=== PATIENT | female | born 1970 | race Caucasian/White ===

== ENCOUNTER 2021-07-01 15:33 | Emergency (ER) | payer OTHER ==
[2021-07-01] MEDS ORDERED: DECADRON 10MG INJ. IV ONE (16:31)
[2021-07-01] MEDS ORDERED: DECADRON 10MG INJ. ONE (16:34)
--- NOTE | 2021-07-01 17:09 | XRAY ---
Indication: Fever, cough, short of breath. Positive Covid 19. Comparison: November 17, 2020. Portable chest remains clear. Heart not enlarged. Bony thorax intact again with partially visualized lower cervical fusion hardware. Impression: Continued nonacute chest.
--- NOTE | 2021-07-01 17:46 | ERPHSYRPT ---
- History of Present Illness Time Seen by Provider: 07/01/21 15:41 Source: patient Exam Limitations: no limitations Patient Subjective Stated Complaint: SOB Triage Nursing Assessment: Patient ambulated back to ED and transferred self to bed. Patient A+O X3. Patient's skin pink, warm and dry. Patient complains of fever, cough, SOB, nausea, headache, bodyache and fatigue since June 26, 2021. Patient tested positive for COVID on June 27, 2021. Lungs noted to be wheezy throughout. Physician History: 51 years old female with history of hypertension, tobacco abuse/COPD, unvaccinated for COVID-19 presented in the ER with 1 week history of subjective feeling of fever chills nonproductive cough generalized body aches fatigue tiredness and headache with progressive worsening. She tested positive for COVID-19 early this month and has received outpatient vaccine but now complaining of more pain in the legs, back, headache with some shortness of breath and her cough is not getting any better. Because of repeated coughing having some chest soreness. Patient reports shortness of breath but maintaining oxygen saturation around 98% on room air without any obvious tachypnea or tachycardia. Timing/Duration: week(s) (1), constant, gradual onset, worse Cough Quality/Degree: moderate, dry cough Possible Cause: illness exposure Modifying Factors: Worsens With: coughing Associated Symptoms: fever, chills, chest pain/soreness, cough, headache, muscle aches, nasal congestion, shortness of breath, sore throat Allergies/Adverse Reactions: aspirin Allergy (Verified 03/11/20 17:17) codeine [Codeine] Allergy (Verified 03/11/20 17:17) Home Medications: Albuterol 2.5 mg/3 ml Neb [Proventil 2.5 mg/3 ml Neb] 1 inh IH DAILY PRN PRN 03/11/20 [History] Albuterol Sulfate [Proair Digihaler] 90 mcg IH Q4HPRN PRN 03/11/20 [History] Atorvastatin Calcium 10 mg PO HS 03/11/20 [History] Cimetidine [Tagamet] 400 mg PO HS 03/11/20 [History] Divalproex Sodium ER 250 mg [Depakote EXTENDED RELEASE 250 MG] 250 mg PO BID 03/11/20 [History] Fluticasone/Vilanterol [Breo Ellipta 100-25 Mcg INH] 1 each IH DAILY 03/11/20 [History] Umeclidinium [place] [Incruse Ellipta] 62.5 mcg IH HS 03/11/20 [History] Lurasidone HCl [Latuda] 20 mg PO HS 03/12/20 [History] PANTOPRAZOLE 40 mg Tablet [Protonix 40MG Tablet] 40 mg PO QAM 03/12/20 [Hi story] hydrOXYzine HCL [Hydroxyzine HCl] 50 mg PO BID 03/12/20 [History] lisinopriL [Lisinopril] 40 mg PO DAILY 03/12/20 [History] Hx Tetanus, Diphtheria Vaccination/Date Given: Yes (UP TO DATE) Hx Influenza Vaccination/Date Given: No Hx Pneumococcal Vaccination/Date Given: No Immunizations Up to Date: Yes Travel Risk - International Travel Have you traveled outside of the country in past 3 weeks: No - Coronavirus Screening Are you exhibiting any of the following symptoms?: Yes Symptoms: Fever, Cough: New Onset, Shortness of Breath, Loss of Taste or Smell, Headaches/Body Aches/Fatigue Close contact with a COVID-19 positive Pt in past 14-21 Days: No - Vaccine Status Have you recieved a Covid-19 vaccination: No - Review of Systems Constitutional: Fever, Chills Eyes: No Symptoms Ears, Nose, & Throat: Nose Congestion, Throat Pain Respiratory: Cough, Dyspnea Cardiac: Chest Pain Abdominal/Gastrointestinal: No Symptoms Genitourinary Symptoms: No Symptoms Musculoskeletal: Arthralgias, Back Pain, Myalgias Neurological: Headache Endocrine: No Symptoms Hematologic/Lymphatic: No Symptoms Immunological/Allergic: No Symptoms - Past Medical History Pertinent Past Medical History: Yes Neurological History: Migraines ENT History: No Pertinent History Cardiac History: Hypertension, Myocardial Infarction ([place]) Respiratory History: Asthma Endocrine Medical History: Hypothyroidism Musculoskeletal History: No Pertinent History GI Medical History: GERD, Other History: No Pertinent History Psycho-Social History: No Pertinent History Female Reproductive Disorders: No Pertinent History Other Medical History: ACID REFLUX - Past Surgical History Past Surgical History: Yes Neuro Surgical History: No Pertinent History Cardiac: No Pertinent History Respiratory: No Pertinent History Gastrointestinal: Cholecystectomy Genitourinary: No Pertinent History Musculoskeletal: Orthopedic Surgery Female Surgical History: Hysterectomy, Tubal Ligation Other Surgical History: 2 ON R IGHT HAND , ONE ON L ELBOW. - Social History Smoking Status: Current every day smoker How long have you smoked: 29 YEARS Exposure to second hand smoke: Yes Drug Use: marijuana Patient Lives Alone: No - Female History Hx Now: No - Nursing Vital Signs Nursing Vital Signs: Initial Vital Signs Temperature 98.6 F 07/01/21 15:55 Pulse Rate 84 07/01/21 15:55 Respiratory Rate 18 07/01/21 15:55 Blood Pressure 152/104 07/01/21 15:55 O2 Sat by Pulse Oximetry 96 07/01/21 15:55 Pain Scale Pain Intensity 5 - Physical Exam General Appearance: no apparent distress, alert, anxiety Eye Exam: PERRL/EOMI, eyes nml inspection Ears, Nose, Throat Exam: moist mucous membranes, pharyngeal erythema Neck Exam: normal inspection, non-tender, supple, full range of motion Respiratory Exam: rhonchi, wheezing, No respiratory distress Cardiovascular Exam: regular rate/rhythm, normal heart sounds Gastrointestinal/Abdomen Exam: soft, normal bowel sounds, No tenderness Back Exam: normal inspection, normal range of motion Extremity Exam: normal inspection, normal range of motion Neurologic Exam: alert, oriented x 3, cooperative Skin Exam: normal color SpO2 Interpretation: normal SpO2: 95 O2 Delivery: Room Air - Course EKG Interpreted by Me: RATE (74), Sinus Rhythm, NORMAL AXIS, NORMAL INTERVALS, NORMAL QRS Ordered Tests: Active Orders 24 hr Category Date Time Status CHEST 1 VIEW (PORTABLE) Stat Exams 07/01/21 16:17 Completed BLOOD CULTURE Stat Lab 07/01/21 16:50 Received CBC W DIFF Stat Lab 07/01/21 16:50 Completed CMP Stat Lab 07/01/21 16:50 Completed D-DIMER QUANTITATIVE Stat Lab 07/01/21 17:42 Completed Lactic Acid Stat Lab 07/01/21 17:05 Completed MAGNESIUM Stat Lab 07/01/21 16:50 Completed NT PRO BNP Stat Lab 07/01/21 16:50 Completed TROPONIN Q3H Lab 07/01/21 16:50 Completed TROPONIN Q3H Lab 07/01/21 19:45 Ordered TROPONIN Q3H Lab 07/01/21 22:45 Ordered TROPONIN Q3H Lab 07/02/21 01:45 Ordered TROPONIN Q3H Lab 07/02/21 04:45 Ordered Medication Summary Discontinued Medications Generic Name Dose Route Start Last Admin Trade Name Amadou PRN Reason Stop Dose Admin Dexamethasone Sodium Phosphate 6 mg 07/01/21 16:31 07/01/21 16:36 Dexamethasone Sod Phosphate 10 Mg/Ml IV 07/01/21 16:32 6 mg STAT ONE Administration Dexamethasone Sodium Phosphate Confirm 07/01/21 16:34 Dexamethasone Sod Phosphate 10 Mg/Ml Administered 07/01/21 16:35 Dose 10 mg .ROUTE .STK-MED ONE Lab/Rad Data: Laboratory Result Diagrams 07/01/21 16:50 07/01/21 16:50 Laboratory Results 07/01/21 07/01/21 07/01/21 Range/Units 17:42 17:05 16:50 WBC (4.0-10.5) K/mm3 RBC (4.1-5.4) M/mm3 Hgb (12.0-16.0) gm/dl Hct (35-47) % MCV (78-100) fl MCH (26-32) pg MCHC (32-36) g/dl RDW (11.5-14.0) % Plt Count (150-450) K/mm3 MPV (7.5-11.0) fl Gran % (36.0-66.0) % Eos # (Auto) (0-0.5) Absolute Lymphs (auto) (1.0-4.6) Absolute Monos (auto) (0.0-1.3) Lymphocytes % (24.0-44.0) % Monocytes % (0.0-12.0) % Eosinophils % (0.00-5.0) % Basophils % (0.0-0.4) % Absolute Granulocytes (1.4-6.9) Basophils # (0-0.4) D-Dimer 467 (215-500) ng/mL Sodium (137-145) mmol/L Potassium (3.5-5.1) mmol/L Chloride (98-107) mmol/L Carbon Dioxide (22-30) mmol/L Anion Gap (5-15) MEQ/L BUN (7-17) mg/dL Creatinine (0.52-1.04) mg/dL Estimated GFR ML/MIN Glucose (74-106) mg/dL Lactic Acid 1.2 (0.4-2.0) Calcium (8.4-10.2) mg/dL Magnesium (1.6-2.3) mg/dL Total Bilirubin (0.2-1.3) mg/dL AST (14-36) U/L ALT (0-35) U/L Alkaline Phosphatase (38-126) U/L Troponin I < 0.012 (0.000-0.034) ng/mL NT-Pro-B Natriuret Pep (0-900) pg/mL Serum Total Protein (6.3-8.2) g/dL Albumin (3.5-5.0) g/dL 07/01/21 07/01/21 Range/Units 16:50 16:50 WBC 8.9 (4.0-10.5) K/mm3 RBC 4.82 (4.1-5.4) M/mm3 Hgb 14.1 (12.0-16.0) gm/dl Hct 42.9 (35-47) % MCV 89.0 (78-100) fl MCH 29.3 (26-32) pg MCHC 32.9 (32-36) g/dl RDW 13.8 (11.5-14.0) % Plt Count 241 (150-450) K/mm3 MPV 9.6 (7.5-11.0) fl Gran % 54.8 (36.0-66.0) % Eos # (Auto) 0.03 (0-0.5) Absolute Lymphs (auto) 3.16 (1.0-4.6) Absolute Monos (auto) 0.82 (0.0-1.3) Lymphocytes % 35.6 (24.0-44.0) % Monocytes % 9.2 (0.0-12.0) % Eosinophils % 0.3 (0.00-5.0) % Basophils % 0.1 (0.0-0.4) % Absolute Granulocytes 4.86 (1.4-6.9) Basophils # 0.01 (0-0.4) D-Dimer (215-500) ng/mL Sodium 139 (137-145) mmol/L Potassium 3.8 (3.5-5.1) mmol/L Chloride 107 (98-107) mmol/L Carbon Dioxide 27 (22-30) mmol/L Anion Gap 8.9 (5-15) MEQ/L BUN 17 (7-17) mg/dL Creatinine 0.72 (0.52-1.04) mg/dL Estimated GFR > 60.0 ML/MIN Glucose 90 (74-106) mg/dL Lactic Acid (0.4-2.0) Calcium 9.0 (8.4-10.2) mg/dL Magnesium 2.0 (1.6-2.3) mg/dL Total Bilirubin 0.40 (0.2-1.3) mg/dL AST 54 H (14-36) U/L ALT 73 H (0-35) U/L Alkaline Phosphatase 65 (38-126) U/L Troponin I (0.000-0.034) ng/mL NT-Pro-B Natriuret Pep 266 (0-900) pg/mL Serum Total Protein 7.0 (6.3-8.2) g/dL Albumin 4.1 (3.5-5.0) g/dL - Progress Progress: unchanged Air Movement: fair Progress Note: 07/01/21 18:56 51 years old Covid positive is evaluated for cough and shortness of breath. Given steroids. Patient is maintaining oxygen saturation on room air. Not tachypneic or tachycardic. Grossly unremarkable work-up including D-dimers. I will give her short course of steroid, i Zithromax to cover for any super imposed bacterial infection. Recommended outpatient follow-up. Discussed signs symptoms of worsening needing return to ER which she seems understanding. Stable for discharge. 07/01/21 18:59 Blood Culture(s) Obtained: Yes Antibiotics given: No Counseled pt/family regarding: lab results, diagnosis, need for follow-up, rad results - Departure Departure Disposition: Home Clinical Impression: Viral syndrome Condition: Stable Critical Care Time: No Referrals: ANDREW VELAZCO MD [Primary Care Provider] - Follow up/PCP as directed (In 2 days for reevaluation) Instructions: Coronavirus Disease 2019 (COVID-19) ([place]) Additional Instructions: Use inhaler/nebulizer. Take Tylenol as needed. Follow-up with care for reevaluation. Return to ER for worsening cough or shortness of breath, persistent high-grade fever etc. Prescriptions: Dexamethasone [Decadron] 6 mg PO DAILY #5 tablet Azithromycin 250 mg [Zithromax 250 MG TABLET] 250 mg PO ZPACK #6 tablet
[2021-07-01 17:49] LABS: Absolute Neutrophil Ct (ANC) 4.86 (1.4-6.9); Basophil (Absolute #) 0.01 (0-0.4); Eosinophil % 0.3 % (0.00-5.0); Eosinophil (Absolute #) 0.03 (0-0.5); Hematocrit 42.9 % (35-47); Hemoglobin 14.1 gm/dl (12.0-16.0); Lymphocyte (Absolute #) 3.16 (1.0-4.6); Lymphocytes % 35.6 % (24.0-44.0); Mean Corpuscular Hemoglobin 29.3 pg (26-32); Mean Corpuscular Hgb Concent. 32.9 g/dl (32-36); Mean Platelet Volume 9.6 fl (7.5-11.0); Monocyte (Absolute #) 0.82 (0.0-1.3); Monocytes % 9.2 % (0.0-12.0); Neutrophil % 54.8 % (36.0-66.0); Platelet Count 241 K/mm3 (150-450); Red Blood Count 4.82 M/mm3 (4.1-5.4); Red Cell Distribution Width 13.8 % (11.5-14.0); White Blood Count 8.9 K/mm3 (4.0-10.5)
[2021-07-01 18:00] LABS: ALBUMIN 4.1 g/dL (3.5-5.0); ALKALINE PHOSPHATASE 65 U/L (38-126); ANION GAP 8.9 MEQ/L (5-15); BLOOD UREA NITROGEN 17 mg/dL (7-17); CHLORIDE 107 mmol/L (98-107); Carbon Dioxide 27 mmol/L (22-30); Creatinine 1 0.72 mg/dL (0.52-1.04); EST GLOMERULAR FILTRATION RATE > 60.0 ML/MIN; Glucose 90 mg/dL (74-106); NT PRO BNP 266 pg/mL (0-900); Potassium 3.8 mmol/L (3.5-5.1); SGOT/AST 54 U/L (14-36); SGPT/ALT 73 U/L (0-35); SODIUM 139 mmol/L (137-145)
[2021-07-01 18:52] VITALS: BP 169/103; PULSE 69
[2021-07-01 19:01] VITALS: O2SAT 95
== END 2021-07-01 19:22 | disposition home or self-care (01) ==
LOC: ED 15:33
DX: B34.9 Viral infection, unspecified (principal); R50.9 Fever, unspecified; R05.9 Cough, unspecified; R51.9 Headache, unspecified; M79.10 Myalgia, unspecified site; R09.81 Nasal congestion; R06.02 Shortness of breath; J02.9 Acute pharyngitis, unspecified; I10 Essential (primary) hypertension; J44.9 Chronic obstructive pulmonary disease, unspecified; Z72.0 Tobacco use; U07.1 COVID-19; Z79.52 Long term (current) use of systemic steroids; Z79.899 Other long term (current) drug therapy
CPT/HCPCS: 36415; 71045; 80053; 83605; 83735; 83880; 84484; 85025; 85379; 87040; 96374; 99284; J1100

== ENCOUNTER 2023-06-14 12:14 | Emergency (ER) | payer OTHER ==
--- NOTE | 2023-06-14 12:31 | ERPHSYRPT ---
- History of Present Illness Time Seen by Provider: 06/14/23 12:31 Source: patient Exam Limitations: no limitations Allergies/Adverse Reactions: aspirin Allergy (Verified 03/11/20 17:17) codeine [Codeine] Allergy (Verified 03/11/20 17:17) Home Medications: Albuterol 2.5 mg/3 ml Neb [Proventil 2.5 mg/3 ml Neb] 1 inh IH DAILY PRN PRN 03/11/20 [History] Albuterol Sulfate [Proair Digihaler] 90 mcg IH Q4HPRN PRN 03/11/20 [History] Atorvastatin Calcium 10 mg PO HS 03/11/20 [History] Cimetidine [Tagamet] 400 mg PO HS 03/11/20 [History] Divalproex Sodium ER 250 mg [Depakote EXTENDED RELEASE 250 MG] 250 mg PO BID 03/11/20 [History] Fluticasone/Vilanterol [Breo Ellipta 100-25 Mcg INH] 1 each IH DAILY 03/11/20 [History] Umeclidinium [place] [Incruse Ellipta] 62.5 mcg IH HS 03/11/20 [History] Lurasidone HCl [Latuda] 20 mg PO HS 03/12/20 [History] PANTOPRAZOLE 40 mg Tablet [Protonix 40MG Tablet] 40 mg PO QAM 03/12/20 [History] hydrOXYzine HCL [Hydroxyzine HCl] 50 mg PO BID 03/12/20 [History] lisinopriL [Lisinopril] 40 mg PO DAILY 03/12/20 [History] Hx Tetanus, Diphtheria Vaccination/Date Given: Yes (UP TO DATE) Hx Influenza Vaccination/Date Given: No Hx Pneumococcal Vaccination/Date Given: No Travel Risk - Vaccine Status Have you recieved a Covid-19 vaccination: No - Past Medical History Pertinent Past Medical History: Yes Neurological History: Migraines ENT History: No Pertinent History Cardiac History: Hypertension, Myocardial Infarction ([place]) Respiratory History: Asthma Endocrine Medical History: Hypothyroidism Musculoskeletal History: No Pertinent History GI Medical History: GERD, Other History: No Pertinent History Psycho-Social History: No Pertinent History Female Reproductive Disorders: No Pertinent History Other Medical History: ACID REFLUX - Past Surgical History Past Surgical History: Yes Neuro Surgical History: No Pertinent History Cardiac: No Pertinent History Respiratory: No Pertinent History Gastrointestinal: Cholecystectomy Genitourinary: No Pertinent History Musculoskeletal: Orthopedic Surgery Female Surgical History: Hysterectomy, Tubal Ligation Other Surgical History: 2 ON R IGHT HAND , ONE ON L ELBOW. - Social History Smoking Status: Current every day smoker How long have you smoked: 29 YEARS Exposure to second hand smoke: Yes Drug Use: marijuana Patient Lives Alone: No - Departure Referrals: ANDREW VELAZCO MD [Primary Care Provider] - Follow up/PCP as directed
== END 2023-06-14 12:45 | disposition left against medical advice (07) ==
LOC: ED 12:14
DX: Z53.21 Procedure and treatment not carried out due to patient leaving prior to being seen by health care provider (principal)
CPT/HCPCS: 99281

== ENCOUNTER 2023-10-05 19:19 | Emergency (ER) | payer OTHER ==
--- NOTE | 2023-10-05 19:22 | ERPHSYRPT ---
- History of Present Illness Time Seen by Provider: 10/05/23 19:22 Source: patient, family Exam Limitations: no limitations Physician History: This is a 53-year-old white female patient of Dr. Velazco who presents with headache that is global in location and a level of 7 out of 10. Patient has a history of migraine headaches. She also has a history of hypertension. Patient states that she takes her blood pressure medication "whenever I feel like I need it". When asked, she did admit that her primary prescribing provider does not know this is how she is taking her blood pressure medication. Patient is a daily smoker of tobacco cigarettes and does use marijuana. At 430 this afternoon patient took 2 Excedrin and 2 baby aspirin as well as 40 mg of oral lisinopril. Patient states that she has a headache, nasal congestion and bodyaches. However, she is refusing viral swabs. Patient used to be on preventative migraine headache medication but it made her sick to her stomach so she quit taking it. Patient has a history of hypertension, asthma, hyperlipidem ia, gastroesophageal reflux disease, hypothyroidism and hypothermia Timing/Duration: today Quality: aching Head Pain Location: global Severity of Pain-Max: moderate Severity of Pain-Current: moderate Recent Head Trauma: no recent headache/trauma, occasional headaches Modifying Factors: Improves With: noise Associated Symptoms: No dizziness, No nausea/vomiting, No neck pain, No sensitive to light, No speech problems, No vision changes, No visual disturbance Previous symptoms: same symptoms as today, no recent treatment Allergies/Adverse Reactions: aspirin Allergy (Verified 10/05/23 19:49) codeine [Codeine] Allergy (Verified 10/05/23 19:49) promethazine [From Phenergan] Allergy (Verified 10/05/23 19:49) Home Medications: lisinopriL [Lisinopril] 40 mg PO DAILY 03/12/20 [History] Hx Tetanus, Diphtheria Vaccination/Date Given: Yes (UP TO DATE) Hx Influenza Vaccination/Date Given: No Hx Pneumococcal Vaccination/Date Given: No Travel Risk - International Travel Have you traveled outside of the country in past 3 weeks: No - Emerging Infectious Disease Are you exhibiting symptoms associated with any current EIDs: No - Review of Systems Constitutional: No Symptoms Eyes: No Symptoms Ears, Nose, & Throat: No Symptoms Respiratory: No Symptoms Cardiac: No Symptoms Abdominal/Gastrointestinal: No Symptoms Genitourinary Symptoms: No Symptoms Musculoskeletal: No Symptoms Skin: No Symptoms Neurological: Headache Psychological: No Symptoms Endocrine: No Symptoms Hematologic/Lymphatic: No Symptoms Immunological/Allergic: No Symptoms All Other Systems: Reviewed and Negative - Past Medical History Pertinent Past Medical History: Yes Neurological History: Migraines ENT History: No Pertinent History Cardiac History: Hypertension, Myocardial Infarction ([place]) Respiratory History: Asthma Endocrine Medical History: Hypothyroidism Musculoskeletal History: No Pertinent History GI Medical History: GERD, Other History: No Pertinent History Psycho-Social History: No Pertinent History Female Reproductive Disorders: No Pertinent History Other Medical History: ACID REFLUX - Past Surgical History Past Surgical History: Yes Neuro Surgical History: No Pertinent History Cardiac: No Pertinent History Respiratory: No Pertinent History Gastrointestinal: Cholecystectomy Genitourinary: No Pertinent History Musculoskeletal: Orthopedic Surgery Female Surgical History: Hysterectomy, Tubal Ligation Other Surgical History: 2 ON R IGHT HAND , ONE ON L ELBOW. - Social History Smoking Status: Current every day smoker How long have you smoked: 29 YEARS Exposure to second hand smoke: Yes Drug Use: marijuana Patient Lives Alone: No - Nursing Vital Signs Nursing Vital Signs: Initial Vital Signs Temperature 97.9 F 10/05/23 19:50 Pulse Rate 87 10/05/23 19:50 Respiratory Rate 19 10/05/23 19:50 Blood Pressure 172/111 10/05/23 19:50 O2 Sat by Pulse Oximetry 97 10/05/23 19:50 Pain Scale Pain Intensity 7 - Physical Exam General Appearance: no apparent distress, alert, anxiety Eye Exam: PERRL/EOMI, eyes nml inspection Ears, Nose, Throat Exam: normal ENT inspection, moist mucous membranes Neck Exam: normal inspection, non-tender, supple, full range of motion Respiratory Exam: normal breath sounds, lungs clear, airway intact, No chest tenderness, No respiratory distress Cardiovascular Exam: regular rate/rhythm, normal heart sounds, normal peripheral pulses Gastrointestinal/Abdominal Exam: soft, normal bowel sounds, No tenderness Extremity Exam: normal inspection, normal range of motion, pelvis stable Mental Status Exam: alert, oriented x 3, cooperative second steward Exam: normal hearing, normal speech, PERRL Motor/Sensory Exam: no motor deficit, no sensory deficit Skin Exam: normal color, warm, dry Lymphatic Exam: No adenopathy SpO2 Interpretation: normal O2 Delivery: Room Air - Course Nursing assessment & vital signs reviewed: Yes Ordered Tests: Active Orders 24 hr Category Date Time Status HEAD WITHOUT CONTRAST [CT] Stat Exams 10/05/23 21:18 Taken - Progress Progress: improved, re-examined Air Movement: good Progress Note: 10/05/23 21:48 My medical decision making and assigning a low complexity level 2 this patient's medical issues based on review of the patient's past medical history, review the patient's medication list, review patient drug allergy list, history present illness and physical findings on examination. The workup includes CT scan of the head without contrast. I also ordered viral swabs and urinalysis and the patient refuses those studies. 10/05/23 21:50 Patient states she can take Dilaudid, Toradol and Zofran 10/05/23 21:51 Differential diagnosis includes intracranial abnormality, migraine headache, sinus infection, headache secondary to hypertension 10/05/23 21:52 10/05/23 22:10 Patient states that she can take Dilaudid and Toradol. Patient lists aspirin as her allergy but she took 2 Excedrin today and 2 baby aspirin without any issues. CT scan of the head without contrast was interpreted by the radiologist and I reviewed the impression. Impression states no acute intracranial abnormality. Normal CT scan of the head without contrast. Blood Culture(s) Obtained: No Antibiotics given: No Counseled pt/family regarding: diagnosis, need for follow-up, rad results Medical Desision Making - Independent Historian Additional History obtained from: Family - Diagnostic Testing Diagnostic test were ordered, analyzed, and reviewed by me: Yes Radiological Interpretation: Reviewed by me, Teleradiologist Report - Risk of complications Low Risk: Low risk of morbidity from additional dx testing or treatment - Departure Departure Disposition: Home Clinical Impression: Migraine headache, Hypertension, Noncompliance with medication regimen Condition: Stable Critical Care Time: No Referrals: ANDREW VELAZCO MD [Primary Care Provider] - Follow up/PCP as directed Additional Instructions: Begin taking your blood pressure medication daily as originally prescribed. Call your primary care provider tomorrow, 10/06/2023 to make arrangements for further evaluation follow-up in the next 3 to 5 days to discuss treatment plan for your blood pressure and migraine headaches.
[2023-10-05 20:00] VITALS: TEMP 97.9
[2023-10-05] MEDS ORDERED: BENADRYL 50 MG/ML ONE (22:20)
[2023-10-05] MEDS ORDERED: TORAdol 30 mg Injection ONE (22:20)
[2023-10-05] MEDS ORDERED: ZOFRAN ODT 4 MG ONE (22:20)
[2023-10-05] MEDS ORDERED: Hydromorphone 1 mg/ml Injection ONE (22:21)
[2023-10-05] MEDS: ZOFRAN ODT 4 MG PO ONE (22:24)
[2023-10-05] MEDS: TORAdol 30 mg Injection IV ONE (22:25)
[2023-10-05] MEDS: BENADRYL 50 MG/ML IV ONE (22:26)
[2023-10-05] MEDS: Hydromorphone 1 mg/ml Injection IV ONE (22:26)
[2023-10-05] MEDS: TORAdol 30 mg Injection IM ONE (22:32)
[2023-10-05] MEDS: Hydromorphone 1 mg/ml Injection IM ONE (22:33)
[2023-10-05] MEDS: BENADRYL 50 MG/ML IM ONE (22:34)
[2023-10-05 23:01] VITALS: BP 128/80; PULSE 67; RESP 15; O2SAT 93
--- NOTE | 2023-10-06 07:43 | XRAY ---
Indication: Headache. Hypertension Multiple contiguous axial images obtained through the head without contrast. Comparison: None Normal appearing brain parenchyma, ventricles, and bony calvarium for patient's age. Visualized paranasal sinuses and mastoid air cells are clear. Impression: Normal CT head without contrast exam.
== END 2023-10-05 23:10 | disposition home or self-care (01) ==
LOC: ED 19:19
DX: G43.909 Migraine, unspecified, not intractable, without status migrainosus (principal); I10 Essential (primary) hypertension; E78.5 Hyperlipidemia, unspecified; Z79.899 Other long term (current) drug therapy; Z91.148 Patient's other noncompliance with medication regimen for other reason; Z72.0 Tobacco use
CPT/HCPCS: 70450; 96374; 96375; 99284; J1170; J1200; J1885; Q0162